=== PATIENT | male | born 1995 | race Hispanic/Latino ===

== ENCOUNTER 2018-08-17 10:40 | Inpatient (IN) | payer OTHER ==
[~2018-08-17] VITALS: Ht 172.7 cm; Wt 70.4 kg
[2018-08-17 12:45] LABS: HEMATOCRIT 40.6 % (39.0-50.0); HEMOGLOBIN 13.4 g/dl (14.0-18.0); IMMATURE GRANULOCYTES 0.9 % (0.0-5.0); NEUT# 16.43 thou/uL (1.82-7.42); RED BLOOD COUNT 4.46 mill/uL (4.70-6.10); RED CELL DISTRI WIDTH 13.1 % (11.5-15.5)
[2018-08-17 13:02] LABS: ALBUMIN 3.7 g/dL (3.2-5.0); ALKALINE PHOSPHATASE 80 u/l (38-126); ANION GAP 14 (6-22 (CALC)); BILIRUBIN, TOTAL 0.5 mg/dL (0.0-1.4); BUN 9 mg/dL (9-20); BUN/CREATININE RATIO 15 (12-20 (CALC)); CARBON DIOXIDE 27 mmol/l (22-30); CHLORIDE 99 mmol/l (95-108); CREATININE 0.6 mg/dL (0.7-1.3); GFR > 60 ML/MIN (>=60 (CALC)); GFR FOR AFR.AMER. > 60 ML/MIN (>=60 (CALC)); POTASSIUM 3.7 mmol/l (3.5-5.1); SGOT/AST 23 u/l (17-59); SODIUM 137 mmol/l (137-146); TOTAL PROTEIN 6.7 g/dL (6.3-8.2)
[2018-08-17 17:00] VITALS: BP 124/67
[2018-08-17 19:30] VITALS: BP 113/68
[2018-08-17 23:54] VITALS: BP 98/60
[2018-08-18 04:32] VITALS: BP 105/65
[2018-08-18 05:15] LABS: HEMATOCRIT 36.4 % (39.0-50.0); IMMATURE GRANULOCYTES 0.5 % (0.0-5.0); MEAN CELL VOLUME 90.1 fL CALC (80.0-100.0); MEAN CORPUSCULAR HGB 29.7 pG CALC (26.0-32.0); NEUT# 12.11 thou/uL (1.82-7.42); RED BLOOD COUNT 4.04 mill/uL (4.70-6.10); RED CELL DISTRI WIDTH 13.2 % (11.5-15.5)
[2018-08-18 05:27] LABS: ALKALINE PHOSPHATASE 90 u/l (38-126); ANION GAP 11 (6-22 (CALC)); BILIRUBIN, TOTAL 0.6 mg/dL (0.0-1.4); BUN 11 mg/dL (9-20); BUN/CREATININE RATIO 17 (12-20 (CALC)); CARBON DIOXIDE 29 mmol/l (22-30); CHLORIDE 100 mmol/l (95-108); CREATININE 0.7 mg/dL (0.7-1.3); GFR > 60 ML/MIN (>=60 (CALC)); GFR FOR AFR.AMER. > 60 ML/MIN (>=60 (CALC)); MAGNESIUM 2.1 mg/dL (1.6-2.3); POTASSIUM 3.9 mmol/l (3.5-5.1); SODIUM 136 mmol/l (137-146); TOTAL PROTEIN 5.6 g/dL (6.3-8.2)
[2018-08-18 05:36] LABS: ALBUMIN 2.9 g/dL (3.2-5.0); SGOT/AST 55 u/l (17-59)
[2018-08-18 07:30] VITALS: BP 111/71
[2018-08-18 15:42] VITALS: BP 108/58
[2018-08-18 19:33] VITALS: BP 105/57
[2018-08-19 04:28] VITALS: BP 103/64
[2018-08-19 08:00] VITALS: BP 118/70
[2018-08-19 15:30] VITALS: BP 119/59
[2018-08-19 19:38] VITALS: BP 117/67
[2018-08-20 04:00] VITALS: BP 115/61
[2018-08-20 08:23] VITALS: BP 118/73
[2018-08-20 15:49] VITALS: BP 107/59
[2018-08-20 19:30] VITALS: BP 125/75
[2018-08-21] VITALS (9 sets, daily range): BP systolic 102–135; BP diastolic 63–90
[2018-08-21 05:56] LABS: HEMATOCRIT 40.7 % (39.0-50.0); HEMOGLOBIN 13.2 g/dl (14.0-18.0); IMMATURE GRANULOCYTES 0.4 % (0.0-5.0); MEAN CORPUSCULAR HGB 29.2 pG CALC (26.0-32.0); MEAN CORPUSCULAR HGB CONC 32.4 g/L CALC (32.0-36.0); NEUT# 4.58 thou/uL (1.82-7.42); RED BLOOD COUNT 4.52 mill/uL (4.70-6.10); RED CELL DISTRI WIDTH 13.5 % (11.5-15.5)
[2018-08-21 06:06] LABS: URINE BILIRUBIN - DIPSTICK NEGATIVE (NEGATIVE); URINE BLOOD DIPSTICK NEGATIVE (NEGATIVE); URINE COLOR YELLOW; URINE GLUCOSE - DIPSTICK NEGATIVE (NEGATIVE); URINE KETONE NEGATIVE (NEGATIVE); URINE LEUK ESTERASE NEGATIVE (Negative); URINE NITRITE - DIPSTICK NEGATIVE (Negative); URINE PROTEIN - DIPSTICK NEGATIVE (NEG-TRACE); URINE SPECIFIC GRAVITY 1.015; URINE UROBILINOGEN - DIPSTICK 0.2 E.U./dL (0.2)
[2018-08-21 06:07] LABS: URINE CLARITY CLEAR
[2018-08-21 06:15] LABS: ALBUMIN 3.4 g/dL (3.2-5.0); ALKALINE PHOSPHATASE 111 u/l (38-126); ANION GAP 15 (6-22 (CALC)); BILIRUBIN, TOTAL 0.4 mg/dL (0.0-1.4); BUN 13 mg/dL (9-20); BUN/CREATININE RATIO 20 (12-20 (CALC)); CARBON DIOXIDE 28 mmol/l (22-30); CHLORIDE 101 mmol/l (95-108); CREATININE 0.7 mg/dL (0.7-1.3); GFR > 60 ML/MIN (>=60 (CALC)); GFR FOR AFR.AMER. > 60 ML/MIN (>=60 (CALC)); MAGNESIUM 2.3 mg/dL (1.6-2.3); SGOT/AST 39 u/l (17-59); SODIUM 139 mmol/l (137-146); TOTAL PROTEIN 6.5 g/dL (6.3-8.2)
[2018-08-21 06:22] LABS: POTASSIUM 4.7 mmol/l (3.5-5.1)
[2018-08-22 00:05] VITALS: BP 120/69
[2018-08-22 04:45] VITALS: BP 105/70
[2018-08-22 07:03] LABS: HEMATOCRIT 41.6 % (39.0-50.0); HEMOGLOBIN 13.7 g/dl (14.0-18.0); IMMATURE GRANULOCYTES 1.1 % (0.0-5.0); MEAN CELL VOLUME 89.1 fL CALC (80.0-100.0); MEAN CORPUSCULAR HGB 29.3 pG CALC (26.0-32.0); MEAN CORPUSCULAR HGB CONC 32.9 g/L CALC (32.0-36.0); NEUT# 4.4 thou/uL (1.82-7.42); RED BLOOD COUNT 4.67 mill/uL (4.70-6.10); RED CELL DISTRI WIDTH 13.3 % (11.5-15.5)
[2018-08-22 07:20] LABS: ANION GAP 15 (6-22 (CALC)); BUN 14 mg/dL (9-20); BUN/CREATININE RATIO 21 (12-20 (CALC)); CARBON DIOXIDE 28 mmol/l (22-30); CHLORIDE 102 mmol/l (95-108); CREATININE 0.7 mg/dL (0.7-1.3); GFR > 60 ML/MIN (>=60 (CALC)); GFR FOR AFR.AMER. > 60 ML/MIN (>=60 (CALC)); MAGNESIUM 2.2 mg/dL (1.6-2.3); POTASSIUM 4.8 mmol/l (3.5-5.1); SODIUM 140 mmol/l (137-146)
[2018-08-22 08:09] VITALS: BP 131/72
[2018-08-22 11:24] VITALS: BP 129/75
[2018-08-22 15:39] VITALS: BP 116/70
[2018-08-22 19:25] VITALS: BP 123/80
[2018-08-23 00:16] VITALS: BP 126/84
[2018-08-23 05:27] LABS: HEMATOCRIT 42.5 % (39.0-50.0); HEMOGLOBIN 14.1 g/dl (14.0-18.0); MEAN CELL VOLUME 88.9 fL CALC (80.0-100.0); MEAN CORPUSCULAR HGB 29.5 pG CALC (26.0-32.0); MEAN CORPUSCULAR HGB CONC 33.2 g/L CALC (32.0-36.0); RED BLOOD COUNT 4.78 mill/uL (4.70-6.10); RED CELL DISTRI WIDTH 13.2 % (11.5-15.5)
[2018-08-23 05:36] VITALS: BP 120/64
[2018-08-23 07:38] VITALS: BP 126/74
[2018-08-23 11:42] VITALS: BP 128/68
[2018-08-23 15:05] VITALS: BP 118/66
[2018-08-23 19:25] VITALS: BP 116/75
[2018-08-24 04:51] VITALS: BP 117/69
[2018-08-24 09:11] VITALS: BP 113/79
[2018-08-24 15:30] VITALS: BP 103/71
[2018-08-24 19:00] VITALS: BP 125/76
[2018-08-25 04:25] VITALS: BP 125/67
[2018-08-25 08:14] VITALS: BP 117/82
[2018-08-25 15:40] VITALS: BP 113/74
[2018-08-25 19:25] VITALS: BP 121/74
[2018-08-26 04:15] VITALS: BP 123/74
[2018-08-26 07:51] VITALS: BP 118/76
[2018-08-26] MEDS ORDERED: KEFLEX500 MG PO (13:00)
[2018-08-26 15:45] VITALS: BP 112/65
== END 2018-08-26 17:40 | disposition home health service (06) | DRG 501 ==
LOC: ED 10:40 → EDBD 11:46 → ED-I 14:52 → ED 15:10 → MS2 15:11
PROVIDERS: Nurse Practitioner Family; ADMIT Internal Medicine Nephrology; ATTEND Internal Medicine
PROC: 0M9N0ZZ Drainage of Right Knee Bursa and Ligament, Open Approach (ICD-10-PCS; principal; 2018-08-21)
DX: M71.061 Abscess of bursa, right knee (principal); L03.115 Cellulitis of right lower limb; E46 Unspecified protein-calorie malnutrition; R78.81 Bacteremia; F17.210 Nicotine dependence, cigarettes, uncomplicated; D64.9 Anemia, unspecified; S89.91XA Unspecified injury of right lower leg, initial encounter; B95.61 Methicillin susceptible Staphylococcus aureus infection as the cause of diseases classified elsewhere; X58.XXXA Exposure to other specified factors, initial encounter; Y93.89 Activity, other specified; Y92.74 Orchard as the place of occurrence of the external cause; Y99.0 Civilian activity done for income or pay; Z68.23 Body mass index [BMI] 23.0-23.9, adult
CPT/HCPCS: J0131; J1650; J3370; Q9967